=== PATIENT | male | born 1930 | race Caucasian/White ===

== ENCOUNTER 2016-10-09 | Inpatient (IN) | payer MEDICARE, OTHER ==
[~2016-10-09] MED LIST: ADVIL200 M1 PO; ASPIR 8181 MG; ASPIRIN81 M1 PO; ASPIRIN81 MG PO; BETAPACE80 M2 PO; COREG12.5 M1 PO; COREG12.5 MG; COREG6.25 MG PO; DECLOMYCIN150 MG PO; ELIQUIS5 M1 PO; ENALAPRIL MALEA10 M1 PO; ENALAPRIL MALEA10 MG PO; FLOMAX0.4 M1 PO; FLOMAX0.4 MG; FLOMAX0.4 MG PO; IBUPROFEN600 M1 PO; K-DUR10 ME1 PO; LASIX40 M1 PO; LOTRIMIN AF TP; NORCO 5/3251 TA1 PO; OMEPRAZOLE20 M3 PO; PROAIR HFA8.5 GM INH; PROSCAR5 M1 PO; PROSCAR5 MG; PROSCAR5 MG PO; REMERON15 MG PO; SOTALOL80 MG PO; SPIRIVA18 MC1 INH; SPIRONOLACTONE25 M1 PO; SYMBICORT 80-41 PUFF INH; VASOTEC10 M2 PO; VASOTEC10 MG; VENTOLIN HFA18 G2 PO; VITAMIN D31000 UNI3 PO; VITAMIN D32000 UNI2 PO; XALATAN2.5 M1 OP; XALATAN2.5 ML BOTH EYES
[2016-10-13] MEDS ORDERED: MUCINEX600 M1 PO (13:08)
[2016-10-13] MEDS ORDERED: DELTASONE20 MG PO (13:10)
== END 2016-10-13 14:30 | disposition home health service (06) | DRG 190 ==
DX: J44.0 Chronic obstructive pulmonary disease with (acute) lower respiratory infection (principal); J96.22 Acute and chronic respiratory failure with hypercapnia; J96.21 Acute and chronic respiratory failure with hypoxia; D61.818 Other pancytopenia; J12.1 Respiratory syncytial virus pneumonia; E22.2 Syndrome of inappropriate secretion of antidiuretic hormone; I50.22 Chronic systolic (congestive) heart failure; I42.9 Cardiomyopathy, unspecified; J44.1 Chronic obstructive pulmonary disease with (acute) exacerbation; Z95.810 Presence of automatic (implantable) cardiac defibrillator; N40.0 Benign prostatic hyperplasia without lower urinary tract symptoms; I11.0 Hypertensive heart disease with heart failure; I27.2 Other secondary pulmonary hypertension; I08.1 Rheumatic disorders of both mitral and tricuspid valves; Z79.82 Long term (current) use of aspirin; Z86.711 Personal history of pulmonary embolism; H40.9 Unspecified glaucoma; Z87.891 Personal history of nicotine dependence; Z79.01 Long term (current) use of anticoagulants; Z79.02 Long term (current) use of antithrombotics/antiplatelets; D69.6 Thrombocytopenia, unspecified